=== PATIENT | male | born 1970 | race Caucasian/White ===

== ENCOUNTER 2020-02-08 03:59 | Inpatient (IN) | payer OTHER ==
[2020-02-08] MEDS ORDERED: MORPHINE SULFATE 4 MG/ML SYRINGE IV STA (04:22)
--- NOTE | 2020-02-08 04:28 | ED ---
Abdominal Pain HPI - General Chief Complaint: Abdominal Pain Stated Complaint: Abd Pain Time Seen by Provider: 02/08/20 04:13 Source: patient Mode of arrival: ambulatory Limitations: no limitations - History of Present Illness MD Complaint: abdominal pain Onset/Timin -: days(s) Location: RLQ Radiation: none Migration to: no migration Severity: severe Quality: sharp Consistency: constant Improves With: nothing Worsens With: movement Associated Symptoms: denies other symptoms - Related Data Home Medications Medication Instructions Recorded Confirmed No Known Home Medications 02/08/20 02/08/20 Allergies Allergy/AdvReac Type Severity Reaction Status Date / Time No Known Allergies Allergy Verified 02/08/20 06:51 Review of Systems ROS Statement: Those systems with pertinent positive or pertinent negative responses have been documented in the HPI. ROS Other: All systems not noted in ROS Statement are negative. Constitutional: Denies: fever, chills Respiratory: Denies: cough, dyspnea Cardiovascular: Denies: chest pain, palpitations, edema Gastrointestinal: Reports: abdominal pain. Denies: nausea, vomiting, diarrhea, constipation Genitourinary: Denies: dysuria, hematuria, testicular pain, testicular mass Musculoskeletal: Denies: back pain Skin: Denies: rash, lesions Neurological: Denies: headache, weakness Past Medical History Past Medical History: No Reported History History of Any Multi-Drug Resistant Organisms: None Reported Past Surgical History: No Surgical Hx Reported Past Psychological History: No Psychological Hx Reported Smoking Status: Former smoker Past Alcohol Use History: Occasional Past Drug Use History: None Reported - Past Family History Mother Family Medical History: Congestive Heart Failure (CHF) Father Family Medical History: Congestive Heart Failure (CHF), CVA/TIA General Exam Limitations: no limitations General appearance: alert, in no apparent distress Head exam: Present: atraumatic, normocephalic Eye exam: Present: normal appearance. Absent: scleral icterus, nystagmus ENT exam: Present: normal oropharynx Neck exam: Present: normal inspection Respiratory exam: Present: normal lung sounds bilaterally. Absent: respiratory distress, wheezes, rhonchi, stridor Cardiovascular Exam: Present: regular rate, normal rhythm, normal heart sounds. Absent: systolic murmur, diastolic murmur, rubs, gallop GI/Abdominal exam: Present: soft, tenderness. Absent: distended, guarding, rebound, rigid, mass, pulsatile mass, hernia Extremities exam: Present: normal inspection, normal capillary refill. Absent: pedal edema, calf tenderness Back exam: Present: normal inspection. Absent: CVA tenderness (R), CVA tenderness (L) Neurological exam: Present: alert Skin exam: Present: warm, dry, intact, normal color. Absent: rash Course Vital Signs 02/08/20 02/08/20 02/08/20 04:05 05:46 06:00 Temperature 98.6 F 99.4 F Pulse Rate 98 84 88 Respiratory 18 16 16 Rate Blood Pressure 162/102 117/75 O2 Sat by Pulse 98 97 98 Oximetry 02/08/20 02/08/20 08:05 09:04 Temperature 98.9 F Pulse Rate 85 85 Respiratory 16 16 Rate Blood Pressure 123/86 123/86 O2 Sat by Pulse 98 98 Oximetry Medical Decision Making - Lab Data Result diagrams: 02/08/20 04:26 02/08/20 04:26 Lab Results 02/08/20 02/08/20 02/08/20 Range/Units 04:26 04:26 04:26 WBC 15.4 H (3.8-10.6) k/uL RBC 5.71 (4.30-5.90) m/uL Hgb 16.1 (13.0-17.5) gm/dL Hct 47.6 (39.0-53.0) % MCV 83.4 (80.0-100.0) fL MCH 28.2 (25.0-35.0) pg MCHC 33.8 (31.0-37.0) g/dL RDW 13.3 (11.5-15.5) % Plt Count 319 (150-450) k/uL MPV 6.9 Neutrophils % 88 % Lymphocytes % 7 % Monocytes % 3 % Eosinophils % 2 % Basophils % 0 % Neutrophils # 13.5 H (1.3-7.7) k/uL Lymphocytes # 1.1 (1.0-4.8) k/uL Monocytes # 0.5 (0-1.0) k/uL Eosinophils # 0.3 (0-0.7) k/uL Basophils # 0.0 (0-0.2) k/uL Sodium 135 L (137-145) mmol/L Potassium 3.8 (3.5-5.1) mmol/L Chloride 104 (98-107) mmol/L Carbon Dioxide 22 (22-30) mmol/L Anion Gap 9 mmol/L BUN 11 (9-20) mg/dL Creatinine 1.10 (0.66-1.25) mg/dL Est GFR (CKD-EPI)AfAm >90 (>60 ml/min/1.73 sqM) Est GFR (CKD-EPI)NonAf 79 (>60 ml/min/1.73 sqM) Glucose 178 H (74-99) mg/dL Calcium 10.4 H (8.4-10.2) mg/dL Total Bilirubin 1.5 H (0.2-1.3) mg/dL AST 21 (17-59) U/L ALT 23 (4-49) U/L Alkaline Phosphatase 83 (38-126) U/L Total Protein 7.4 (6.3-8.2) g/dL Albumin 4.5 (3.5-5.0) g/dL Amylase 44 (30-110) U/L Lipase 86 (23-300) U/L Urine Color Light Yellow Urine Appearance Clear (Clear) Urine pH 6.5 (5.0-8.0) Ur Specific [place] 1.012 (1.001-1.035) Urine Protein Negative (Negative) Urine Glucose (UA) Negative (Negative) Urine Ketones Negative (Negative) Urine Blood Negative (Negative) Urine Nitrite Negative (Negative) Urine Bilirubin Negative (Negative) Urine Urobilinogen <2.0 (<2.0) mg/dL Ur Leukocyte Esterase Negative (Negative) - EKG Data -: EKG Interpreted by Ga EKG shows normal: sinus rhythm (with sinus arrhythmia, rate 82 bpm), axis (normal), intervals (normal), QRS complexes (normal), ST-T waves (normal) Rate: normal Interpretation: normal EKG Disposition Clinical Impression: Abdominal pain, Acute appendicitis Disposition: ADMITTED IP TO THIS [facility] Condition: Fair
[2020-02-08 04:34] LABS: Basophils % (A) 0 %; Eosinophils # (A) 0.3 k/uL (0-0.7); Eosinophils % (A) 2 %; HCT 47.6 % (39.0-53.0); HGB 16.1 gm/dL (13.0-17.5); Lymphocytes # (A) 1.1 k/uL (1.0-4.8); Lymphocytes % (A) 7 %; MCH 28.2 pg (25.0-35.0); MCHC 33.8 g/dL (31.0-37.0); MCV 83.4 fL (80.0-100.0); Mean Platelet Volume 6.9; Monocytes # (A) 0.5 k/uL (0-1.0); Monocytes % (A) 3 %; Neutrophils # (A) 13.5 k/uL (1.3-7.7); Neutrophils % (A) 88 %; Platelet Count 319 k/uL (150-450); RBC 5.71 m/uL (4.30-5.90); RDW 13.3 % (11.5-15.5); WBC 15.4 k/uL (3.8-10.6)
[2020-02-08 04:45] LABS: ALT 23 U/L (4-49); AST 21 U/L (17-59); African American GFR (CKD) >90 (>60 ml/min/1.73 sqM); Albumin 4.5 g/dL (3.5-5.0); Alkaline Phosphatase 83 U/L (38-126); Amylase 44 U/L (30-110); Anion Gap 9 mmol/L; Blood Urea Nitrogen 11 mg/dL (9-20); Calcium 10.4 mg/dL (8.4-10.2); Carbon Dioxide 22 mmol/L (22-30); Chloride 104 mmol/L (98-107); Glucose 178 mg/dL (74-99); Lipase 86 U/L (23-300); Non-African American GFR(CKD) 79 (>60 ml/min/1.73 sqM); Potassium 3.8 mmol/L (3.5-5.1); Sodium 135 mmol/L (137-145); Total Bilirubin 1.5 mg/dL (0.2-1.3); Total Protein 7.4 g/dL (6.3-8.2)
--- NOTE | 2020-02-08 04:58 | CT ---
EXAM: CT Abdomen and Pelvis Without Intravenous Contrast CLINICAL HISTORY: ITS.REASON CT Reason: Acute RLQ pain TECHNIQUE: Axial computed tomography images of the abdomen and pelvis without intravenous contrast. CTDI is 15.784 mGy and DLP is 919.20 mGy-cm. This CT exam was performed using one or more of the following dose reduction techniques: automated exposure control, adjustment of the mA and/or kV according to patient size, and/or use of iterative reconstruction technique. COMPARISON: No relevant prior studies available. FINDINGS: Limitations: Evaluation of the abdominal viscera is limited without contrast. Lung bases: Mild basilar atelectatic changes. Mediastinum: Small hiatal hernia. ABDOMEN: Liver: Borderline hepatomegaly. Gallbladder and bile ducts: Dense material in the gallbladder. Pancreas: Unremarkable. Spleen: Unremarkable. Adrenals: Unremarkable. Kidneys and ureters: No obstructing stones. No hydronephrosis. Stomach and bowel: Fluid and air in the small bowel, query ileus or enteritis. Areas of mild colonic wall thickening or underdistention. PELVIS: Appendix: Enlarged appendix measuring 12 mm with appendicoliths and inflammatory changes and trace free fluid. Bladder: Mildly thickened underdistended bladder. Reproductive: Unremarkable as visualized. ABDOMEN and PELVIS: Intraperitoneal space: No fluid collection or free air. Bones/joints: No acute fracture. Soft tissues: Small fat-containing umbilical and inguinal hernias. Vasculature: Atherosclerotic disease. Lymph nodes: Small nonspecific mesenteric and retroperitoneal lymph nodes. IMPRESSION: 1. Enlarged appendix measuring 12 mm with appendicoliths and inflammatory changes compatible with appendicitis. No fluid collection or free air. 2. Additional incidental findings, as above. <MYCVCSECTION> Communications: 02/08/20 05:08 Verify Receipt Verified receipt with BILL Downing. Given to Dr. Koroma on 02/07 05:08 (-05:00)
[2020-02-08] MEDS ORDERED: PIPERACILLIN-TAZOBACTAM 3.375 GM in SODIUM CHLORIDE 0.9% 100 ML IVPB ONE (05:30)
[2020-02-08] MEDS ORDERED: SODIUM CHLORIDE 0.9% 2,000 ML IV STA (05:30)
[2020-02-08] MEDS ORDERED: NALOXONE 0.4 MG/ML 1 ML VIAL IV PRN (05:58)
[2020-02-08] MEDS ORDERED: ACETAMINOPHEN IV (For NPO) 1,000 MG in EMPTY BAG 1 BAG IVPB ONE (06:00)
[2020-02-08] MEDS: SODIUM CHLORIDE 0.9% 1,000 ML IV SCH ×3 (06:11→21:53)
[2020-02-08] MEDS: HYDROmorphone 1 MG/ML 1 ML SYRINGE IVP PRN ×4 (06:13→15:58)
[2020-02-08] MEDS: PANTOPRAZOLE 40 MG/10 ML VIAL IV SCH (07:59)
[2020-02-08 08:00] LABS: Appearance,Urine Clear (Clear); Bilirubin,Urine Negative (Negative); Blood,Urine Negative (Negative); Color,Urine Light Yellow; Glucose,Urine (UA) Negative (Negative); Ketones,Urine Negative (Negative); Leukocyte Esterase,Urine Negative (Negative); Nitrite,Urine Negative (Negative); PH, Urine 6.5 (5.0-8.0); Protein,Urine Negative (Negative); Specific Gravity,Urine 1.012 (1.001-1.035); Urobilinogen,Urine <2.0 mg/dL (<2.0)
[2020-02-08] MEDS: HEPARIN SODIUM,PORCINE 5,000 UNIT/ML 1 ML VIAL SQ SCH ×2 (08:00→21:42)
[2020-02-08] MEDS: ONDANSETRON 4 MG/2 ML VIAL IVP PRN ×2 (12:15→16:31)
[2020-02-08] MEDS ORDERED: GABAPENTIN 300 MG CAP PO ONE (13:00)
[2020-02-08] MEDS ORDERED: TAMSULOSIN 0.4 MG CAP.ER.24H PO ONE (13:00)
--- NOTE | 2020-02-08 13:11 | P.GSHP ---
History of Present Illness H&P Date: 02/08/20 CHIEF COMPLAINT: Right lower quadrant abdominal pain with appendicitis HISTORY OF PRESENT ILLNESS: The patient is a previously healthy 49-year-old male who presents with over 1.5 day history of periumbilical with right lower quadrant abdominal pain that is crampy dull ache in nature. No reports of prior abdominal pain. He states the intensity of the pain is moderate. He had a CT abdomen and pelvis consistent with dilated appendix suspicious for appendicitis hence general surgery admis clive. PAST MEDICAL HISTORY: See list and reviewed PAST SURGICAL HISTORY: See list and reviewed CURRENT MEDICATIONS: See list and reviewed ALLERGIES: See list and reviewed SOCIAL HISTORY: See list and reviewed FAMILY HISTORY: See list and reviewed REVIEW OF ORGAN SYSTEMS: CONSTITUTIONAL: Present fever, no chills. Denies recent weight loss. HEENT: Denies any trouble with vision, hearing or nosebleeds. No difficulty swallowing. LYMPHATIC: The patient denies any lumps and bumps around the neck. ENDOCRINE: Denies any thyroid disorders. Denies any blood sugar glucose intolerance. RESPIRATORY: Denies shortness of breath including chronic cough. CARDIOVASCULAR: Denies history of chest pain with exertion. GASTROINTESTINAL: Denies regurgitation of bile at night as well as intermittent nausea. No blood in stools. GENITOURINARY: Denies any blood in urine or increased urinary frequency. MUSCULOSKELETAL: Denies current joint arthritis. NEUROLOGIC: Denies any numbness or tingling along the distal extremities. No seizure disorders or headaches. PSYCHIATRIC: Denies any depression or suicidal ideation. HEMATOLOGIC: Denies any abnormal bleeding or bruising. PHYSICAL EXAMINATION: GENERAL: A 49-year-old male in no acute distress. Pleasant. HEENT: No sclera icterus. Extraocular movements grossly intact. Moist buccal mucosa. Head is atraumatic, normocephalic. Hears conversational speech. No nasal drainage. NECK: Supple without lymphadenopathy. No JV distention. CHEST: Non-labored respirations and equal bilateral excursions. CARDIOVASCULAR: Regular rate and rhythm. Palpable 2+ radial pulses. ABDOMEN: Soft, tender at the right lower quadrant without guarding. MUSCULOSKELETAL: No clubbing, cyanosis or edema. NEUROLOGIC: No focal or lateralizing signs. PSYCH: Appropriate affect. Alert and oriented to person, place and time. SKIN: Well perfused. Good skin turgor. LABS: Reviewed. White blood cell count elevated over 15,000. STUDIES: CT of the abdomen and pelvis independently reviewed demonstrating multiple appendicoliths with inflammatory changes along the appendix. No evidence of fluid collection. This is my independent interpretation. ASSESSMENT: 1. Right lower quadrant pain. 2. Appendicitis with sepsis 3. Leukocytosis. PLAN: 1. I have discussed benefits and risks of robotic appendectomy. 2. Bilateral SCDs. 3. Antibiotics intravenous 4. DVT prophylaxis with heparin and SCDs 5. Pulmonary toilet with incentive spirometer Thank you very much for allowing me to participate in the care of your patient. Past Medical History Past Medical History: No Reported History History of Any Multi-Drug Resistant Organisms: None Reported Past Surgical History: No Surgical Hx Reported Past Psychological History: No Psychological Hx Reported Smoking Status: Former smoker Past Alcohol Use History: Occasional Past Drug Use History: None Reported - Past Family History Mother Family Medical History: Congestive Heart Failure (CHF) Father Family Medical History: Congestive Heart Failure (CHF), CVA/TIA Medications and Allergies Home Medications Medication Instructions Recorded Confirmed Type No Known Home Medications 02/08/20 02/08/20 History Allergies Allergy/AdvReac Type Severity Reaction Status Date / Time No Known Allergies Allergy Verified 02/08/20 06:51 Surgical - Exam Vital Signs Temp Pulse Resp BP Pulse Ox 98.6 F 98 18 162/102 98 02/08/20 04:05 02/08/20 04:05 02/08/20 04:05 02/08/20 04:05 02/08/20 04:05 Results - Labs 02/08/20 04:26 02/08/20 04:26 Abnormal Lab Results - Last 24 Hours (Table) 02/08/20 02/08/20 Range/Units 04:26 04:26 WBC 15.4 H (3.8-10.6) k/uL Neutrophils # 13.5 H (1.3-7.7) k/uL Sodium 135 L (137-145) mmol/L Glucose 178 H (74-99) mg/dL Calcium 10.4 H (8.4-10.2) mg/dL Total Bilirubin 1.5 H (0.2-1.3) mg/dL Diabetes panel 02/08/20 Range/Units 04:26 Sodium 135 L (137-145) mmol/L Potassium 3.8 (3.5-5.1) mmol/L Chloride 104 (98-107) mmol/L Carbon Dioxide 22 (22-30) mmol/L BUN 11 (9-20) mg/dL Creatinine 1.10 (0.66-1.25) mg/dL Glucose 178 H (74-99) mg/dL Calcium 10.4 H (8.4-10.2) mg/dL AST 21 (17-59) U/L ALT 23 (4-49) U/L Alkaline Phosphatase 83 (38-126) U/L Total Protein 7.4 (6.3-8.2) g/dL Albumin 4.5 (3.5-5.0) g/dL Calcium panel 02/08/20 Range/Units 04:26 Calcium 10.4 H (8.4-10.2) mg/dL Albumin 4.5 (3.5-5.0) g/dL Pituitary panel 02/08/20 Range/Units 04:26 Sodium 135 L (137-145) mmol/L Potassium 3.8 (3.5-5.1) mmol/L Chloride 104 (98-107) mmol/L Carbon Dioxide 22 (22-30) mmol/L BUN 11 (9-20) mg/dL Creatinine 1.10 (0.66-1.25) mg/dL Glucose 178 H (74-99) mg/dL Calcium 10.4 H (8.4-10.2) mg/dL Adrenal panel 02/08/20 Range/Units 04:26 Sodium 135 L (137-145) mmol/L Potassium 3.8 (3.5-5.1) mmol/L Chloride 104 (98-107) mmol/L Carbon Dioxide 22 (22-30) mmol/L BUN 11 (9-20) mg/dL Creatinine 1.10 (0.66-1.25) mg/dL Glucose 178 H (74-99) mg/dL Calcium 10.4 H (8.4-10.2) mg/dL Total Bilirubin 1.5 H (0.2-1.3) mg/dL AST 21 (17-59) U/L ALT 23 (4-49) U/L Alkaline Phosphatase 83 (38-126) U/L Total Protein 7.4 (6.3-8.2) g/dL Albumin 4.5 (3.5-5.0) g/dL
[2020-02-08] MEDS: ACETAMINOPHEN IV (For NPO) 1,000 MG in EMPTY BAG 1 BAG IVPB SCH ×3 (15:04→23:38)
[2020-02-08] MEDS ORDERED: IV FLUID CONTINUATION 1,000 ML IV ONE (16:18)
[2020-02-08] MEDS ORDERED: DEXAMETHASONE SOD PHOSPHATE 4 MG/ML 1 ML VIAL IVP ONE (16:31)
[2020-02-08] MEDS ORDERED: HYDROmorphone (PF) 1 MG/ML ONE (17:16)
[2020-02-08] MEDS ORDERED: NEOSTIGMINE 1 MG/ML 10 ML VIAL ONE (17:16)
[2020-02-08] MEDS ORDERED: ROCURONIUM 10 MG/ML (10 ML VIAL) IV ONE (17:16)
[2020-02-08] MEDS ORDERED: MIDAZOLAM 2 MG/2 ML VIAL ONE (17:16)
[2020-02-08] MEDS ORDERED: GLYCOPYRROLATE 0.2 MG/ML 2 ML VIAL ONE (17:16)
[2020-02-08] MEDS ORDERED: PROPOFOL 10 MG/ML 20 ML VIAL IV ONE (17:16)
[2020-02-08] MEDS ORDERED: fentaNYL (PF) 50 MCG/ML 2 ML AMP ONE (17:16)
[2020-02-08] MEDS ORDERED: KETOROLAC 15 MG/ML 1 ML VIAL ONE (17:16)
[2020-02-08] MEDS ORDERED: SUCCINYLCHOLINE CHLORIDE 100 MG/5 ML SYR IV ONE (17:16)
[2020-02-08] MEDS ORDERED: LIDOCAINE 1% INJ 10MG/ML (20 ML MDV) ONE (17:16)
[2020-02-08] MEDS ORDERED: SODIUM CHLORIDE 0.9% 50 ML with ceFAZolin 2,000 MG IV ONE ×2 (17:21)
[2020-02-08] MEDS: PIPERACILLIN-TAZOBACTAM 3.375 GM in SODIUM CHLORIDE 0.9% 100 ML IVPB SCH ×2 (17:34→21:50)
[2020-02-08] MEDS ORDERED: LIDOCAINE 1%-EPI 1:100,000 20 ML VIAL SQ ONE (17:43)
[2020-02-08] MEDS ORDERED: LACTATED RINGERS 1,000 ML IV ONE (19:20)
[2020-02-08] MEDS ORDERED: HYDROmorphone 1 MG/ML 1 ML SYRINGE IVP PRN (20:24)
[2020-02-08] MEDS ORDERED: METOCLOPRAMIDE 5 MG/ML 2 ML VIAL IVP PRN (20:24)
--- NOTE | 2020-02-08 20:28 | P.OP ---
Date of Procedure: 02/08/20 Description of Procedure: SURGEON: JORGE MACKENZIE MD Preoperative Diagnosis: 1. Ruptured acute appendicitis with sepsis Postoperative Diagnosis: 1. Ruptured gangrenous acute appendicitis with peritonitis with sepsis Procedure(s) Performed: 1. Robotic-assisted daVinci Xi laparoscopic lysis of adhesions over 30 minutes 2. Robotic-assisted daVinci Xi laparoscopic appendectomy 3. Placement of ANNA drain #19 right lower quadrant via left lower quaddrant 4. Peritoneal lavage 500 mL normal saline Anesthesia: GETA, local Estimated Blood Loss (ml): 20 Pathology: other (Aerobic and anaerobic cultures peritoneal fluid, appendix) Condition: stable Disposition: floor Operative Findings: 1. Ruptured gangrenous appendicitis with moderate turbid peritoneal fluid, right lower quadrant 2. Abdomen irrigated with normal saline, 500 mL 3. Cultures obtained of peritoneal fluid 4. Two (2) fires of 45 mm green staple loads used 5. ANNA drain placed at right lower quadrant of abscess pocket 6. Staple line hemostatic INDICATIONS: The patient is a 49-year-old male who presents with acute appendicitis including fevers and peritonitis consistent with sepsis. Surgical intervention was described in detail. Benefits and risks, including infection, open surgery, and possibility for additional surgery was discussed at length. Informed consent was obtained. All questions of the patient and family were answered. DESCRIPTION: The patient was transferred to the operating room and placed in supine position. The patient had previously voided. The abdomen was then prepped and draped in standard sterile fashion as Ioban was placed along the abdomen to minimize any contamination of skin floor. After a timeout protocol was performed, attention was then brought to the left upper quadrant whereby a 0 degree 5 mm laparoscopic trocar entry was performed. The abdominal cavity was entered and insufflated to 15 mmHg pressure, which was tolerated well. Diagnostic laparoscopy demonstrated no injury to bowel, viscera or mesentery. Adhesions were confirmed of the right lower quadrant of omentum, small bowel to the abdominal wall. Localized abscess was found. Next a robotic 12-mm trocar was placed along the right upper quadrant, 15-cm superior from the pelvis. A 8 mm port was placed along the left lower quadrant and another 8-mm port along the epigastrium. Ports were placed 10 cm apart from each other including 15-20 cm away from the target anatomy of the right pelvis. The patient was then placed in Trendelenburg position, at least 7 and right side up at least 7. The robotic da Arden XI system was primed and docked from the left side of the patient. Using atraumatic graspers and vessel sealer, the robotic system was docked and p rimed as described. Instruments were interchanged by the activities assistant including graspers, robotic stapler and vessel sealer. Next, attention was brought to identify the cecum. A systematic view within the abdominal cavity was started with the small bowel which was remarkable for fibrinous exudate throughout the pelvis. The base of the cecum was with inflammation. The appendix was gangrenous with moderate dissection performed. The abscess of 50-mL was aspirated from the abdomen. A 45 mm blue green staple loads were fired along the base of the appendix. The staple line was hemostatic. Hemostasis was checked prior to undocking the robot. The robot was undocked. I re-scrubbed into the case. A round #19 drain was placed via the left lower quadrant port and positioned at the right lower quadrant and pelvis after irrigating the abdomen with 500-mL of normal saline until the aspirant was clear. A drain stitch 2-0 nylon was placed with the bulb attached separately. The specimen was removed from the abdominal cavity with an Endo Catch bag through the 12 mm trocar at the right upper quadrant. All instruments and pneumoperitoneum were evacuated from the abdominal cavity. Local anesthetic was infiltrated to all wounds for postop analgesia. All incisions were also cleansed with diluted hydrogen peroxide. An Optifoam surgical dressing was placed over the right upper quadrant incision and drain site. Exofin glue was applied to the rest of the skin incisions. The patient had tolerated the procedure well. The patient was extubated successfully. The patient was transferred to the postanesthesia care unit in stable condition.
[2020-02-09] MEDS: ACETAMINOPHEN IV (For NPO) 1,000 MG in EMPTY BAG 1 BAG IVPB SCH (05:52)
[2020-02-09] MEDS: PIPERACILLIN-TAZOBACTAM 3.375 GM in SODIUM CHLORIDE 0.9% 100 ML IVPB SCH ×3 (06:30→21:16)
[2020-02-09] MEDS: SODIUM CHLORIDE 0.9% 1,000 ML IV SCH ×3 (06:35→21:16)
[2020-02-09] MEDS: PANTOPRAZOLE 40 MG/10 ML VIAL IV SCH (08:42)
[2020-02-09] MEDS: HEPARIN SODIUM,PORCINE 5,000 UNIT/ML 1 ML VIAL SQ SCH ×2 (08:42→20:16)
[2020-02-09 11:19] LABS: Basophils % (A) 0 %; Eosinophils % (A) 0 %; HCT 42.9 % (39.0-53.0); HGB 14.8 gm/dL (13.0-17.5); Lymphocytes # (A) 0.6 k/uL (1.0-4.8); Lymphocytes % (A) 5 %; MCH 29.8 pg (25.0-35.0); MCHC 34.5 g/dL (31.0-37.0); MCV 86.3 fL (80.0-100.0); Mean Platelet Volume 7.1; Monocytes # (A) 0.5 k/uL (0-1.0); Monocytes % (A) 4 %; Neutrophils # (A) 10.3 k/uL (1.3-7.7); Neutrophils % (A) 90 %; Platelet Count 247 k/uL (150-450); RBC 4.97 m/uL (4.30-5.90); WBC 11.5 k/uL (3.8-10.6)
[2020-02-09 11:38] LABS: Albumin 3.1 g/dL (3.5-5.0); Calcium 8.5 mg/dL (8.4-10.2); Potassium 3.7 mmol/L (3.5-5.1); Total Bilirubin 1.4 mg/dL (0.2-1.3); Total Protein 5.7 g/dL (6.3-8.2)
[2020-02-09 11:42] LABS: Glucose,Whole Blood 113 mg/dL (75-99)
--- NOTE | 2020-02-09 12:24 | P.PN ---
<Lisa Esteban - Last Filed: 02/09/20 12:17> Subjective Progress Note Date: 02/09/20 CHIEF COMPLAINT: Ruptured appendicitis HISTORY OF PRESENT ILLNESS: Patient is postop day #1 status post robotic appendectomy for ruptured appendicitis. Patient does report that his pain is controlled. He denies any nausea. Denies passing any gas or bowel movements. He is on IV antibiotics. He has NG tube in place with 250 brownish output. ANNA drain is purulent with 120 mL output yesterday. Afebrile. WBC has come down from 15.4-11.5. Patient reports urinating without difficulty PHYSICAL EXAM: VITAL SIGNS: Reviewed GENERAL: Well-developed in no acute distress. HEENT: No sclera icterus. Extraocular movements grossly intact. Moist buccal mucosa. Head is atraumatic, normocephalic. Hears conversational speech. No nasal drainage. NECK: Supple without lymphadenopathy. CHEST: Non-labored respirations and equal bilateral excursions. CARDIOVASCULAR: Palpable 2+ radial pulses. ABDOMEN: Soft. Nondistended. Incision sites clean dry and intact. ANNA drain in place with purulent drainage MUSCULOSKELETAL: No clubbing or cyanosis. NEUROLOGIC: No focal or lateralizing signs. Cranial nerves II through XII grossly intact. PSYCH: Appropriate affect. Alert and oriented to person, place and time. SKIN: Well perfused. Good skin turgor. ASSESSMENT: 1. Ruptured appendicitis status post robotic appendectomy for ruptured appendicitis 2. Peritonitis 3. Sepsis present on admission secondary to ruptured appendix PLAN: -Continue IV antibiotics -Continue NG tube for decompression -Continue IV fluids -Continue pain medication as needed -Encouraged incentive spirometer use -Continue IV Protonix for GI prophylaxis and subcu heparin for DVT prophylaxis Physician Pit Inspector note has been reviewed by physician. Signing provider agrees with the documented findings, assessment, and plan of care. Objective - Vital Signs Vital signs: Vital Signs Temp 98.1 F 02/09/20 09:00 Pulse 82 02/09/20 09:00 Resp 17 02/09/20 09:00 BP 130/90 02/09/20 09:00 Pulse Ox 93 L 02/09/20 09:00 Intake & Output 02/08/20 02/09/20 02/09/20 18:59 06:59 18:59 Intake Total 1950 300 Output Total 60 1400 Balance 1890 -1100 Weight 108.862 kg Intake: IV 850 300 Intake, IV Titration 800 Amount IV Fluid Continuation 1, 800 000 ml @ 0 mls/hr IV .STK -MED ONE Rx#:[id number] Oral 300 Output: Gastric Drainage 400 Drainage 40 150 Abdomen 40 150 Urine 850 Estimated Blood Loss 20 Other: # Voids 1 - Labs CBC & Chem 7: 02/09/20 10:31 02/09/20 10:31 Labs: Abnormal Lab Results - Last 24 Hours (Table) 02/09/20 02/09/20 02/09/20 Range/Units 10:31 10:31 11:40 WBC 11.5 H (3.8-10.6) k/uL Neutrophils # 10.3 H (1.3-7.7) k/uL Lymphocytes # 0.6 L (1.0-4.8) k/uL Glucose 116 H (74-99) mg/dL POC Glucose (mg/dL) 113 H (75-99) mg/dL Total Bilirubin 1.4 H (0.2-1.3) mg/dL AST 16 L (17-59) U/L Total Protein 5.7 L (6.3-8.2) g/dL Albumin 3.1 L (3.5-5.0) g/dL Microbiology - Last 24 Hours (Table) 02/08/20 05:40 Blood Culture - Preliminary Blood No Growth after 24 hours 02/08/20 19:35 Gram Stain - Preliminary Appendix Wound Culture - Preliminary 02/08/20 19:35 Anaerobic Culture - Preliminary Appendix <Pastora Weaver N - Last Filed: 02/09/20 19:17> Subjective NG tube discontinued. Flomax started. ANNA purulent. Continue IV antibiotics for 5 to 7 days IV Objective - Vital Signs Vital signs: Vital Signs Temp 97.5 F L 02/09/20 15:00 Pulse 92 02/09/20 15:00 Resp 16 02/09/20 15:00 BP 125/81 02/09/20 15:00 Pulse Ox 93 L 02/09/20 09:00 Intake & Output 02/09/20 02/09/20 02/10/20 06:59 18:59 06:59 Intake Total 300 Output Total 1400 1690 Balance -1100 -1690 Intake: IV 300 Output: Gastric Drainage 400 Drainage 150 90 Abdomen 150 90 Urine 850 1600 - Labs CBC & Chem 7: 02/09/20 10:31 02/09/20 10:31 Labs: Abnormal Lab Results - Last 24 Hours (Table) 02/09/20 02/09/20 02/09/20 Range/Units 10:31 10:31 11:40 WBC 11.5 H (3.8-10.6) k/uL Neutrophils # 10.3 H (1.3-7.7) k/uL Lymphocytes # 0.6 L (1.0-4.8) k/uL Glucose 116 H (74-99) mg/dL POC Glucose (mg/dL) 113 H (75-99) mg/dL Total Bilirubin 1.4 H (0.2-1.3) mg/dL AST 16 L (17-59) U/L Total Protein 5.7 L (6.3-8.2) g/dL Albumin 3.1 L (3.5-5.0) g/dL Microbiology - Last 24 Hours (Table) 02/08/20 05:40 Blood Culture - Preliminary Blood No Growth after 24 hours 02/08/20 19:35 Gram Stain - Preliminary Appendix Wound Culture - Preliminary 02/08/20 19:35 Anaerobic Culture - Preliminary Appendix
[2020-02-09 16:39] LABS: Glucose,Whole Blood 91 mg/dL (75-99)
[2020-02-09] MEDS: HYDROmorphone 1 MG/ML 1 ML SYRINGE IVP PRN (20:14)
[2020-02-09] MEDS: TAMSULOSIN 0.4 MG CAP.ER.24H PO SCH (20:46)
[2020-02-10] MEDS: HYDROmorphone 1 MG/ML 1 ML SYRINGE IVP PRN ×3 (02:04→23:21)
[2020-02-10] MEDS: SODIUM CHLORIDE 0.9% 1,000 ML IV SCH ×3 (06:20→19:32)
[2020-02-10] MEDS: PIPERACILLIN-TAZOBACTAM 3.375 GM in SODIUM CHLORIDE 0.9% 100 ML IVPB SCH ×3 (06:20→19:32)
[2020-02-10] MEDS: PANTOPRAZOLE 40 MG/10 ML VIAL IV SCH (07:48)
[2020-02-10] MEDS: HEPARIN SODIUM,PORCINE 5,000 UNIT/ML 1 ML VIAL SQ SCH ×2 (07:48→19:31)
--- NOTE | 2020-02-10 16:17 | P.PN ---
Subjective Progress Note Date: 02/10/20 CHIEF COMPLAINT: Acute ruptured appendicitis HISTORY OF PRESENT ILLNESS: The patient is a 49-year-old male status post appendectomy for acute ruptured appendicitis. He is postoperative day 2. He is passing flatus. Pain is controlled. No nausea or vomiting. He is feeling much better. He is pending bowel movements. All questions were addressed. ROS: No reports of nausea and vomiting. No bowel movements. No fevers or chills. No new chest pain. No productive sputum PHYSICAL EXAM: VITAL SIGNS: Reviewed CONSTITUTIONAL: Well developed and in no acute distress. EYES: Conjuctivae without sclera icterus. Extraocular movements grossly intact. HEAD, EARS, NOSE, THROAT: Moist buccal mucosa. Head is atraumatic, normocephalic. Hears conversational speech. No nasal drainage. NECK: Supple. No thyroidomegaly. RESPIRATORY: Non-labored respirations and equal bilateral excursions. CARDIOVASCULAR: Palpable 2+ radial pulses. ABDOMEN: Dressing intact. ANNA is now serous MUSCULOSKELETAL: No gross deformity of the lower extremities noted. No clubbing. No cyanosis. SKIN: Good skin turgor. Well perfused. NEUROLOGIC: Cranial nerves II through XII grossly intact. No focal or lateralizing signs. PSYCH: Appropriate affect. Alert and oriented to person, place and time. CLINICAL LABS: Pending ASSESSMENT: 1. Ruptured appendicitis PLAN: 1. Will start regular diet 2. Start adjustment of pain medications for home 3. Will need oral antibiotics for home 4. Continue ANNA for home Objective - Vital Signs Vital signs: Vital Signs Temp 98.5 F 02/10/20 14:09 Pulse 90 02/10/20 14:09 Resp 16 02/10/20 14:09 BP 128/82 02/10/20 14:09 Pulse Ox 98 02/10/20 14:09 Intake & Output 02/09/20 02/10/20 02/10/20 18:59 06:59 18:59 Intake Total 240 Output Total 8016 835 500 Balance -7583 -264 -165 Intake: Oral 240 Output: Drainage 90 35 40 Abdomen 90 35 40 Urine 1600 800 300 Other: Voiding Method Toilet Urinal # Voids 1 1 - Labs CBC & Chem 7: 02/10/20 16:19 02/10/20 16:19 Labs: Microbiology - Last 24 Hours (Table) 02/08/20 05:40 Blood Culture - Preliminary Blood No Growth after 48 hours 02/08/20 19:35 Gram Stain - Preliminary Appendix Wound Culture - Preliminary Gram Neg Bacilli Assessment and Plan (1) Ruptured suppurative appendicitis Current Visit: Yes Status: Acute Code(s): K35.32 - ACUTE APPENDICITIS WITH PERF AND LOC PERITONITIS, W/O ABSCS SNOMED Code(s): 78580812 (2) Peritonitis Current Visit: Yes Status: Acute Code(s): K65.9 - PERITONITIS, UNSPECIFIED SNOMED Code(s): 66087190 (3) Gastritis Current Visit: Yes Status: Acute Code(s): K29.70 - GASTRITIS, UNSPECIFIED, WITHOUT BLEEDING SNOMED Code(s): 0234470
[2020-02-10] MEDS: ACETAMINOPHEN TAB 325 MG TAB PO SCH ×2 (16:49→23:22)
[2020-02-10] MEDS: TAMSULOSIN 0.4 MG CAP.ER.24H PO SCH (16:49)
[2020-02-10 16:51] LABS: Basophils % (A) 0 %; Eosinophils % (A) 0 %; HCT 41.7 % (39.0-53.0); HGB 13.9 gm/dL (13.0-17.5); Lymphocytes % (A) 10 %; MCH 29.2 pg (25.0-35.0); MCHC 33.4 g/dL (31.0-37.0); MCV 87.3 fL (80.0-100.0); Mean Platelet Volume 7.5; Monocytes # (A) 0.4 k/uL (0-1.0); Monocytes % (A) 4 %; Neutrophils % (A) 85 %; Platelet Count 243 k/uL (150-450); RBC 4.78 m/uL (4.30-5.90); RDW 13.4 % (11.5-15.5); WBC 9.4 k/uL (3.8-10.6)
[2020-02-10 17:14] LABS: Calcium 8.3 mg/dL (8.4-10.2); Potassium 3.7 mmol/L (3.5-5.1)
[2020-02-10] MEDS: ONDANSETRON 4 MG/2 ML VIAL IVP PRN (23:21)
[2020-02-11] MEDS: PIPERACILLIN-TAZOBACTAM 3.375 GM in SODIUM CHLORIDE 0.9% 100 ML IVPB SCH (05:28)
[2020-02-11] MEDS: ACETAMINOPHEN TAB 325 MG TAB PO SCH ×2 (05:28→12:32)
[2020-02-11] MEDS: SODIUM CHLORIDE 0.9% 1,000 ML IV SCH (05:29)
[2020-02-11 07:11] LABS: Basophils % (A) 0 %; Eosinophils # (A) 0.1 k/uL (0-0.7); Eosinophils % (A) 1 %; HCT 40.5 % (39.0-53.0); HGB 13.5 gm/dL (13.0-17.5); Lymphocytes # (A) 0.7 k/uL (1.0-4.8); Lymphocytes % (A) 9 %; MCH 29.1 pg (25.0-35.0); MCHC 33.4 g/dL (31.0-37.0); MCV 87.1 fL (80.0-100.0); Monocytes # (A) 0.3 k/uL (0-1.0); Monocytes % (A) 4 %; Neutrophils # (A) 6.5 k/uL (1.3-7.7); Neutrophils % (A) 84 %; Platelet Count 256 k/uL (150-450); RBC 4.66 m/uL (4.30-5.90); RDW 12.9 % (11.5-15.5); WBC 7.7 k/uL (3.8-10.6)
[2020-02-11 07:25] LABS: African American GFR (CKD) >90 (>60 ml/min/1.73 sqM); Anion Gap 6 mmol/L; Blood Urea Nitrogen 17 mg/dL (9-20); Calcium 8.1 mg/dL (8.4-10.2); Carbon Dioxide 27 mmol/L (22-30); Chloride 105 mmol/L (98-107); Glucose 99 mg/dL (74-99); Non-African American GFR(CKD) 86 (>60 ml/min/1.73 sqM); Potassium 3.5 mmol/L (3.5-5.1); Sodium 138 mmol/L (137-145)
[2020-02-11] MEDS: PANTOPRAZOLE 40 MG/10 ML VIAL IV SCH (07:30)
[2020-02-11] MEDS: HEPARIN SODIUM,PORCINE 5,000 UNIT/ML 1 ML VIAL SQ SCH (07:30)
[2020-02-11 07:32] VITALS: BP 115/80; PULSE 95; RESP 16; TEMP 98.7
--- NOTE | 2020-02-11 12:37 | P.DS ---
Providers Date of admission: 02/09/20 09:21 Expected date of discharge: 02/11/20 Attending physician: Pastora Weaver Consults: 02/08/20 05:32 Consult Physician Routine Consulting Provider: [facility] Consult Reason/Comments: [facility] Do you want consulting provider notified?: Yes Primary care physician: Julio Cesar Rowland - Discharge Diagnosis(es) (1) Ruptured suppurative appendicitis Current Visit: Yes Status: Acute (2) Peritonitis Current Visit: Yes Status: Acute (3) Gastritis Current Visit: Yes Status: Acute Hospital Course: The patient is a 49 year old male who presented with appendicitis. He underwent robotic appendectomy with findings of rupture. ANNA drain was placed. He was on antibiotics with improvement of his WBC. His right lower quadrant abdominal pain had resolved. Discharge instructions were reviewed. He was stable prior to discharge, tolerating diet, having bowel movements and passing flatus. ANNA drain was serous. Patient Condition at Discharge: Stable Plan - Discharge Summary Discharge Rx Participant: Yes New Discharge Prescriptions: New Simethicone [Gas-X] 125 mg PO AC-TID PRN #20 capsule PRN Reason: Gi Upset Ibuprofen [Motrin] 600 mg PO Q8HR PRN #30 tab PRN Reason: Pain Acetaminophen Tab [Tylenol Tab] 1,000 mg PO Q6HR PRN #30 tablet Amoxic-Pot Clav 875-125Mg [Augmentin 875-125] 1 each PO Q12HR #14 tab metroNIDAZOLE [Flagyl] 500 mg PO TID #30 tab Discharge Medication List Acetaminophen Tab [Tylenol Tab] 1,000 mg PO Q6HR PRN #30 tablet 02/11/20 [Rx] Amoxic-Pot Clav 875-125Mg [Augmentin 875-125] 1 each PO Q12HR #14 tab 02/11/20 [Rx] Ibuprofen [Motrin] 600 mg PO Q8HR PRN #30 tab 02/11/20 [Rx] Simethicone [Gas-X] 125 mg PO AC-TID PRN #20 capsule 02/11/20 [Rx] metroNIDAZOLE [Flagyl] 500 mg PO TID #30 tab 02/11/20 [Rx] Follow up Appointment(s)/Referral(s): Pastora Weaver MD [STAFF PHYSICIAN] - 11/17/20 None,Stated [REFERRING] - 1-2 days Patient Instructions/Handouts: Appendicitis (GEN), Gumaro-Rodriguez Drain Care (DC), Peritonitis (DC), Deep Vein Thrombosis Prevention (DC), Laparoscopic Appendectomy (DC) Activity/Diet/Wound Care/Special Instructions: No lifting over 10 pounds for 2 weeks, February 21 Keep ANNA drain site dry! Recommend liquid diet for home Expect diarrhea from your antibiotics No bath tub soaks Discharge Disposition: HOME SELF-CARE
== END 2020-02-11 13:43 | disposition home or self-care (01) | DRG 853 ==
LOC: EC 03:59 → 6NMEDSUR 05:32 → 1SOBS 07:31 → OBSVTOIN 02-09 09:21
PROVIDERS: ADMIT Surgery Plastic and Reconstructive Surgery; ATTEND Surgery Plastic and Reconstructive Surgery
PROC: 8E0W4CZ Robotic Assisted Procedure of Trunk Region, Percutaneous Endoscopic Approach (ICD-10-PCS; 2020-02-08)
PROC: 0DTJ4ZZ Resection of Appendix, Percutaneous Endoscopic Approach (ICD-10-PCS; principal; 2020-02-08 14:45)
DX: A41.9 Sepsis, unspecified organism (principal); K35.33 Acute appendicitis with perforation, localized peritonitis, and gangrene, with abscess; K29.70 Gastritis, unspecified, without bleeding; Z87.891 Personal history of nicotine dependence; Z82.49 Family history of ischemic heart disease and other diseases of the circulatory system
CPT/HCPCS: 36415; 74176; 80048; 80053; 81003; 82150; 83690; 85025; 87040; 87070; 87075; 87077; 87186; 87205; 88304; 93005; 96361; 96365; 96372; 96375; 99285

== ENCOUNTER 2021-10-27 00:20 | Emergency (ER) | payer OTHER ==
[2021-10-27 00:29] VITALS: BP 119/84; PULSE 63; RESP 18; TEMP 98.9
== END 2021-10-27 00:58 | disposition home or self-care (01) ==
LOC: EC 00:20
DX: Z02.89 Encounter for other administrative examinations (principal)
CPT/HCPCS: 99499